=== PATIENT | male | born 1985 | race African-American/Black ===

== ENCOUNTER 2020-06-03 07:29 | Outpatient (CLI) | payer OTHER, SELFPAY ==
--- NOTE | ~2020-06-03 | XR_ITS ---
LUMBAR SPINE INDICATION: Low back pain TECHNIQUE: 3 views lumbar spine COMPARISON: None FINDINGS: No fracture, subluxation or dislocation. There is grade 1 spondylolisthesis at L5-S1 second steven to spondylolysis. Vertebral bodies and disk spaces are preserved. IMPRESSION: 1: Grade 1 spondylolisthesis at L5-S1 secondary to spondylolysis.. Reviewed, dictated and finalized at location A. ST FIRE SPECIALIST SUPERVISOR
--- NOTE | ~2020-06-03 | US_ITS ---
US abdomen complete EXAMINATION: US Abdomen Complete INDICATION: Liver cysts. PROCEDURE: Realtime High Resolution abdomen ultrasound. COMPARISON: No prior studies for comparison FINDINGS: Gallbladder within normal limits. No gallstones, pericholecystic fluid, gallbladder wall t hickening or biliary dilatation. Common bile duct measures 1 mm. There is a 7 mm cyst of the right hepatic lobe. Otherwise, liver echotexture is normal. Pancreas with in normal limits. Pancreatic tail is obscured by bowel gas. Spleen is unremarkeable. Renal echotext ure is within normal limits bilaterally without hydronephrosis, contour deforming mass or renal stone . Right kidney measures 10 cm. Left kidney measures 10.4 cm. Visualized aspects of the aorta and IVC are within normal limits. Portal vein is patent. No sonograph ic Cardozo's sign indicated by the technologist. IMPRESSION: 1: Small liver cyst measuring 7 mm.. Reviewed, dictated and finalized at location A. TH INFORMATION CLERK
[2020-06-03 09:02] LABS: Hematocrit 42.4 % (42.0-52.0); Mean Corpuscular Hemoglobin 29.7 pg (26-34); Mean Corpuscular Volume 89.8 fl (80-100); Mean Platelet Volume 10.6 fl (7.4-10.4); Platelet Count Result 259 k/mm3 (150-375); Red Blood Count 4.72 M/mm3 (4.6-6.20); Red Cell Distribution Width 12.4 % (11.5-14.5); White Blood Count 3.4 K/mm3 (4.5-10.0)
[2020-06-03 09:14] LABS: Cholesterol 202 mg/dL (0-200); HDL Direct 54 mg/dL; Triglycerides 108 mg/dL (<150)
[2020-06-03 09:25] LABS: LDL Cholesterol Direct 119 mg/dL
[2020-06-03 10:01] LABS: Hepatitis B Surface Antigen Negative (Negative)
[2020-06-03 10:07] LABS: HAV RESULT Negative (Negative); Hepatitis B Core IgM Result Negative (Negative)
[2020-06-03 10:19] LABS: Hepatitis C Virus Antibody Negative (Negative)
== END 2020-06-03 07:30 | disposition home or self-care (01) ==
PROVIDERS: PCP Emergency Medicine; Visit Provider Emergency Medicine
DX: K76.89 Other specified diseases of liver (principal); M43.16 Spondylolisthesis, lumbar region; M47.816 Spondylosis without myelopathy or radiculopathy, lumbar region
CPT/HCPCS: 36415; 72100; 76700; 80061; 80074; 85027

== ENCOUNTER 2024-12-11 13:49 | Emergency (ER) | payer BC, SELFPAY ==
--- NOTE | ~2024-12-11 | US_ITS ---
US scrotum doppler INDICATION: Testicular lump TECHNIQUE: Testicular sonogram utilizing grayscale and color Doppler FINDINGS: The testes are normal in size and appearance. No focal lesions are seen. The right testes measures 4.3 x 2.1 x 3.3 cm centimeters, and the left testis measures 4.6 2.1 x 3.6 cm cm. There is n ormal vascular flow to both testes. There is an extratesticular mass on the right which is hyperechoi c, heterogeneous without significant internal vascularity measuring 2.3 x 1.5 x 2.4 cm. The right and left epididymides appear normal. There are small hydroceles. No varicocele identified. IMPRESSION: 1. Hyperechoic oval right extratesticular mass measuring up to 2.4 cm. This is likely benign. Consid erations include adenomatoid tumor papillary cystadenoma, friable breast pseudotumor and leiomyoma. 2: Small hydroceles. Reviewed, dictated and finalized at location A. IMPRESSION: 1. Hyperechoic oval right extratesticular mass measuring up to 2.4 cm. This is likely benign. Considerations include adenomatoid tumor papillary cystadenoma, friable breast pseudotumor and leiomyoma. 2: Small hydroceles.
--- OUTSIDE RECORDS SUMMARY | 2024-12-11 14:01 | XMS_ITS | Clinical Summary ---
Author Organization [facility] Address [address] [place] [address] Care Team Providers Care Customer Relations Representative Name Role Phone Unavailable Primary Care Provider Unavailabl e Source Comments [facility],non-owned Affiliates and Associated Physician Practices is amultiple site organization consisting of ambulatory clinics and hospital sitesin [place], [place], [place] and [place]. This disclosure is being madepursuant to the Care Everywhere program and may not contain all information available regarding this patient. Last updated 18.[facility] Allergies No known active allergies Medications * Be aware that medications may not be up to date on this document. Alwaysverify current medications with the patient. HYDROcodone-acet aminophen ([place]) 5-325 MG tablet Take 1 (one) tablet by mouth every 6 hours as needed for Pain 12 tablet 04/11/2022 Active Immunizations Immunization Administration Dates Next Due TDAP (7yrs+) 04/11/2022 Social History Tobacco Use Types Packs/Day Years Used Date Smoking Tobacco: Never Assessed Sex and Gender Information Value Date Recorded Sex Assigned at Not on file Legal Sex Male 8:11 PM CDT Gender Identity Not on file Sexual Orientation Not on file Last Filed Vital Signs Vital Sign Reading Time Taken Comments Blood Pressure 141/97 04/11/2022 1:00 AM CDT Pulse 70 04/11/2022 1:00 AM CDT Temperature 36.8 C (98.2 F) 04/10/2022 8:14 PM CDT Respiratory Rate 14 04/11/2022 1:00 AM CDT Oxygen Saturation 96% 04/11/2022 1:00 AM CDT Inhaled Oxygen Concentration - - Weight 113.4 kg (250 lb) 04/10/2022 8:14 PM CDT Height 190.5 cm (6' 3) 04/10/2022 8:14 PM CDT Body Mass Index 31.25 04/10/2022 8:14 PM CDT Plan of Treatment Upcoming Encounters Date Type Department Care Team (Late st Contact Info) Description 12/31/2024 9:30 AM CDT Office Visit [facility] - Urology [address] [place] [address] [address] [place] [address] Jac Brown MD [address] [place] [address] Health Maintenance Due Date Last Done Comments HIV SCREENING 2000 HEPATITIS C SCREENING 04/03/2003 HEPATITIS B VACCINE (1 of 3 - 19+ 3-dose series) 2004 COVID-19 VACCINE (2023-2 5 season) 2024 DEPRESSION SCREENING 07/10/2024 INFLUENZA VACCINE (Season Ended) 2025 DTAP/TDAP/TD VACCINES (2 - T d or Tdap) 04/11/2032 04/11/2022 ZOSTER VACCINE (1 of 2) 2035 HIB VACCINE Aged Out No longer eligi ble based on patient's age to complete this topic HPV VACCINE Aged Out No longer eligi ble based on patient's age to complete this topic MENINGOCOCCAL (Group B) VACC INE SHARED DECISION-MAKING Aged Out No longer eligibl e based on patient's age to complete this topic MENINGOCOCCAL GROUPS A/C/Y/W VACCINE Aged Out No longer eligible b ased on patient's age to complete this topic PNEUMOCOCCAL VACCINE Aged Out No long er eligible based on patient's age to complete this topic Insurance [facility]
--- OUTSIDE RECORDS SUMMARY | 2024-12-11 14:01 | XMS_ITS | Clinical Summary ---
Author Organization [facility] Address [address] [place] [address] [place] [address] Care Team Providers Care Short Haul Driver Name Role Phone Jon Baires MD Primary Care Provider [phone] Medications hydrocortisone acetate (ANUSOL-HC) 25 mg SuppositoryInd ications:Acute hemorrhoid Insert 1 Suppository (25 mg) by rectum 2 times daily as needed for Itching. 30 Suppository 2 1 Active hydrocortisone (HYTONE) 2.5 % OintmentIndica tions:External hemorrhoid, bleeding Apply to affected area 2 times daily. 20 Gram 1 1 Active Active Problems Problem Noted Date Diagnosed Date Leukopenia 07/28/2020 External hemorrhoid, bleeding 07/28/2020 Family History Medical History Relation Name Comments Healthy Brother 1 Healthy Daughter Healthy Father Healthy Mother Healthy Sister 1 Healthy Sister 2 Healthy Son 1 Healthy Son 2 Relation Name Status Comments Brother 1 Alive Brother 2 Daughter Alive Father Alive Mother Alive Sister 1 Alive Sister 2 Alive Son 1 Alive Son 2 Alive Social History Tobacco Use Types Packs/Day Years Used Date Smoking Tobacco: Never Smokeless Tobacco: Never Alcohol Use Standard Drinks/Week Comments Yes 0 (1 standard drink = 0.6 oz pur e alcohol) occasional Sex and Gender Information Value Date Recorded Sex Assigned at Not on file Legal Sex Male 3:44 PM PAINT TESTER Gender Identity Not on file Sexual Orientation Not on file Last Filed Vital Signs Vital Sign Reading Time Taken Comments Blood Pressure 149/93 07/28/2020 3:39 PM PAINT TESTER Pulse 84 07/28/2020 3:39 PM PAINT TESTER Temperature 37.2 C (98.9 F) 07/28/2020 3:39 PM PAINT TESTER Respiratory Rate - - Oxygen Saturation 97% 07/28/2020 3:39 PM PAINT TESTER Inhaled Oxygen Concentration - - Weight 114 kg (251 lb 6.4 oz) 07/28/2020 3:39 PM PAINT TESTER Height 190.5 cm (6' 3) 07/28/2020 3:39 PM PAINT TESTER Body Mass Index 31.42 07/28/2020 3:39 PM PAINT TESTER Plan of Treatment Health Maintenance Due Date Last Done Comments HEPATITIS B VACCINES (1 of 3 - 19+ 3-dose series) 2004 INFLUENZA VACCINE (#1) 2024 DTAP/TDAP/TD VACCINES (2 - T d or Tdap) 10/16/2029 10/17/2019 HPV VACCINES Aged Out No longer eligi ble based on patient's age to complete this topic Care Teams Short Haul Driver Relationship Specialty Start Date End Date Jon Baires MD [address] [place] [phone] PCP - General Emergency Medicine 07/28/20
--- OUTSIDE RECORDS SUMMARY | 2024-12-11 14:01 | XMS_ITS | Clinical Summary ---
Author Organization [facility] Address [address] [place] [id number] Phone Care Team Providers Care Avionics Systems Integration Specialist Name Role Phone Unavailable Primary Care Provider Unavailabl e Allergies No known active allergies Medications amLODIPine (NORVASC) 2.5 MG tablet Take 1 tablet (2.5 mg total) by mouth 1 (one) time each day 30 tablet 11 02/16/2021 Active Active Problems Problem Noted Date Diagnosed Date Flank pain 05/04/2021 Essential hypertension 04/19/2021 Serum creatinine raised 02/12/2021 Family History Medical History Relation Comments Kidney disease Relative Hypertension Unknown Relation Status Comments Relative Alive 2 uncles are on dialysis Unknown Alive Social History Tobacco Use Types Packs/Day Years Used Date Smoking Tobacco: Never Smokeless Tobacco: Never Alcohol Use Standard Drinks/Week Comments Not Asked 0 (1 standard drink = 0.6 oz pur e alcohol) Sex and Gender Information Value Date Recorded Sex Assigned at Not on file Legal Sex Male 12:40 PM MDT Gender Identity Not on file Sexual Orientation Not on file Last Filed Vital Signs Vital Sign Reading Time Taken Comments Blood Pressure 140/99 02/16/2021 1:01 PM CDT Pulse 94 02/16/2021 1:01 PM CDT Temperature - - Respiratory Rate - - Oxygen Saturation - - Inhaled Oxygen Concentration - - Weight 115 kg (253 lb) 02/16/2021 1:01 PM CDT Height 190.5 cm (6' 3) 02/16/2021 1:01 PM CDT Body Mass Index 31.62 02/16/2021 1:01 PM CDT Plan of Treatment Health Maintenance Due Date Last Done Comments Influenza Vaccine (Season Ended) 2025 Insurance [facility]
--- NOTE | 2024-12-11 15:08 | ED_ITS ---
HPI - General Adult General Chief complaint: Urogenital-Male Stated complaint: need ultrasound of testicles Time Seen by Provider: 12/11/24 13:56 History of Present Illness HPI narrative: 39-year-old male presents to the emergency department for evaluation for testicular swelling that is been ongoing the last year. Patient reports he does have some intermittent abdominal pain with this. Patient did have follow-up with primary care physician is referred to the emergency department for ultrasound. Patient denies any current abdominal pain. Patient denies any associated nausea vomiting diarrhea. Patient denies any pain with urination. Related Data Allergies Allergy/AdvReac Type Severity Reaction Status Date / Time No Known Allergies Allergy Verified 12/11/24 13:50 Review of Systems Review of Systems: All systems reviewed & are unremarkable except as noted in HPI and below Exam Narrative: APPEARANCE: Well appearing, no pain, no distress, well-nourished. HEAD: normocephalic, atraumatic. EYES: PERRLA/EOMI, conjunctivae clear. NOSE: Normal no drainage EARS:TMS clear with good light reflex. THROAT: Pharynx clear, no exudate. NECK: Supple. No adenopathy, no masses. RESPIRATORY: Airway patent, respirations nonlabored. Clear to auscultation bilaterally, no rales, rhonchi, wheezing. CARDIOVASCULAR: Regular rate and rhythm without murmurs rubs or gallops. ABDOMINAL: Soft, nontender, nondistended, normal bowel sounds MUSCULOSKELETAL: Moves all extremities. Strength/ROM intact, No edema, No calf tenderness. NEURO: Alert. Cranial nerves II through XII intact. Good gait. Good coordination SKIN: Warm, dry. Normal Color Medical Decision Making MDM Narrative Medical decision making narrative: 39-year-old male presents emergency department for evaluation for testicular mass. Ultrasound does show a hyperechoic oval right extra-articular mass measuring up to 2.48 cm, this is likely benign, considerations include addendum the toilet tumor papular a cystadenoma, friable breast pseudotumor and Leiomyoma. Patient was updated on results of his ultrasound and patient was encouraged to have close follow-up with Urology Differential Diagnosis Differential Diagnosis: Testicular torsion, testicular mass, UTI, varicocele, hydrocele Lab Data Lab results reviewed: Yes I reviewed the patient's lab results. Labs: Lab Results 12/11/24 Range/Units 14:58 Urine Color Yellow (Yellow) Urine Appearance Clear (Clear) Urine pH 7.5 (5.0-9.0) Ur Specific [place] 1.020 (1.001-1.035) Urine Protein Negative (Negative) mg/dL Urine Glucose (UA) Negative (Negative) mg/dL Urine Ketones Negative (Negative) mg/dL Ur Blood (Man) Negative (Negative) Urine Nitrate Negative (Negative) Urine Bilirubin Negative (Negative) Urine Urobilinogen 1.0 (<2.0) mg/dL Leukocyte Esterase Rfl Trace H (Negative) ALEKS/UL Urine RBC 0-2 (0-2) /hpf Urine WBC 0-3 (0-3) /hpf Urine Bacteria None seen (None) /hpf Imaging Data Radiologist's impression: Impressions Scrotum Ultrasound 12/11/24 15:07 IMPRESSION: 1. Hyperechoic oval right extratesticular mass measuring up to 2.4 cm. This is likely benign. Considerations include adenomatoid tumor papillary cystadenoma, friable breast pseudotumor and leiomyoma. 2: Small hydroceles. Discharge Plan Discharge Clinical Impression: Mass of right testis Patient Disposition: Home Condition: Stable Instructions: Antibiotic Form, Testicle Pain (ED) Additional Instructions: Your ultrasound did show a 2.4 cm right testicular mass. Have close follow-up with Urology for this. If you have any worsening symptoms and please call or return to the emergency department. Patient Language: Singaporean Follow-up/Referrals: Jon Baires MD [Primary Care Provider] -
--- OUTSIDE RECORDS SUMMARY | 2024-12-11 15:11 | XMS_ITS | Clinical Summary ---
Author Organization [facility] Address [address] [place] [address] Phone Care Team Providers Care Physical Trainer Name Role Phone Unavailable Primary Care Provider [...] Comments Influenza Vaccine (Season Ended) 2025 Insurance [facility]
--- OUTSIDE RECORDS SUMMARY | 2024-12-11 15:11 | XMS_ITS | Clinical Summary ---
Author Organization [facility] Address [address] [place] [address] Care Team Providers Care Paste Mixing Supervisor Name Role Phone Unavailable Primary Care Provider Unavailabl e Source Comments [facility],non-owned Affiliates and Associated Physician Practices is amultiple site organization consisting of ambulatory clinics and hospital sitesin [place], [place], [place] and [place]. This disclosure is being madepursuant to the Care Everywhere program and may not contain all information available regarding this patient. Last updated 18.[facility] Allergies No known active allergies Medications * Be aware that medications may not be up to date on this document. Alwaysverify current medications with the patient. HYDROcodone-acet aminophen ([place]) 5-325 MG tablet Take 1 (one) tablet [...] Office Visit [facility] - Urology [address] [place] [address] [address] [place] [address] Jac Brown MD [address] [place] [address] Health Maintenance Due Date Last Done Comments [...] patient's age to complete this topic Insurance [facility]
--- OUTSIDE RECORDS SUMMARY | 2024-12-11 15:11 | XMS_ITS | Clinical Summary ---
Author Organization [facility] Address [address] [place] [address] [place] [address] Care Team Providers Care Representative Personal Service Name Role Phone Jon Baires MD Primary Care Provider [phone] Medications hydrocortisone acetate (ANUSOL-HC) 25 mg SuppositoryInd [...] on file Legal Sex Male 3:44 PM BOOM BOSS Gender Identity Not on file Sexual Orientation Not on file Last Filed Vital Signs Vital Sign Reading Time Taken Comments Blood Pressure 149/93 07/28/2020 3:39 PM BOOM BOSS Pulse 84 07/28/2020 3:39 PM BOOM BOSS Temperature 37.2 C (98.9 F) 07/28/2020 3:39 PM BOOM BOSS Respiratory Rate - - Oxygen Saturation 97% 07/28/2020 3:39 PM BOOM BOSS Inhaled Oxygen Concentration - - Weight 114 kg (251 lb 6.4 oz) 07/28/2020 3:39 PM BOOM BOSS Height 190.5 cm (6' 3) 07/28/2020 3:39 PM BOOM BOSS Body Mass Index 31.42 07/28/2020 3:39 PM BOOM BOSS Plan of Treatment Health Maintenance Due Date Last Done Comments HEPATITIS B VACCINES (1 of 3 - 19+ 3-dose series) 2004 INFLUENZA VACCINE (#1) 2024 DTAP/TDAP/TD VACCINES (2 - T d or Tdap) 10/16/2029 10/17/2019 HPV VACCINES Aged Out No longer eligi ble based on patient's age to complete this topic Care Teams Representative Personal Service Relationship Specialty Start Date End Date Jon Baires MD [address] [place] [phone] PCP - General Emergency Medicine 07/28/20
[2024-12-11 16:35] LABS: Appearance Urine Clear (Clear); Glucose Urine UA Negative (Negative); Protein Urine Negative (Negative); pH Urine 7.5 (5.0-9.0)
[2024-12-11 16:36] LABS: Add Urine Microscopic? YES; Bilirubin Urine Negative (Negative); Blood Urine Negative (Negative); Ketones Urine Negative (Negative); Leukocyte Esterase Ur Trace LEU/UL (Negative); Nitrate Urine Negative (Negative)
[2024-12-11 16:37] LABS: Color Urine Yellow (Yellow); RBC Urine 0-2 /hpf (0-2); WBC Urine 0-3 /hpf (0-3)
[2024-12-11 16:38] LABS: Bacteria Urine None seen /hpf
== END 2024-12-11 16:49 | disposition home or self-care (01) ==
PROVIDERS: Emergency Provider Emergency Medicine; PCP Emergency Medicine
DX: N50.9 Disorder of male genital organs, unspecified (principal); N43.3 Hydrocele, unspecified
CPT/HCPCS: 76870; 81001; 93976; 99284